=== PATIENT | male | born 1990 | race Caucasian/White ===

== ENCOUNTER 2017-05-20 18:40 | Emergency (ER) | payer BC ==
[~2017-05-20] VITALS: Ht 175.3 cm; Wt 95.7 kg
[2017-05-20 18:46] VITALS: Ht 175.3 cm; Wt 95.7 kg
[2017-05-20 21:09] VITALS: BP 126/76
== END 2017-05-20 21:09 | disposition home or self-care (01) ==
LOC: ED 18:40
DX: S46.812A Strain of other muscles, fascia and tendons at shoulder and upper arm level, left arm, initial encounter (principal); I10 Essential (primary) hypertension; Z91.013 Allergy to seafood; V00.131A Fall from skateboard, initial encounter; Y93.89 Activity, other specified; Y92.89 Other specified places as the place of occurrence of the external cause; Y99.8 Other external cause status